=== PATIENT | female | born 1990 | race Caucasian/White ===

== ENCOUNTER 2016-12-28 12:33 | Emergency (ER) | payer SELFPAY ==
[2016-12-28 12:47] VITALS: BMI 17.5
[2016-12-28] MEDS ORDERED: ONDANSETRON *ODT* 4 MG TABLET SL ONE (13:15)
[2016-12-28] MEDS ORDERED: SODIUM CHLORIDE 1,000 ML IV STA (13:15)
[2016-12-28] MEDS ORDERED: FAMOTIDINE 20 MG/50 ML IVPB 50 ML IVPB ONE ×2 (13:15→13:30)
--- NOTE | 2016-12-28 13:26 | PDOC ---
History of Present Illness - General Chief Complaint: Pain Stated Complaint: NAUSEA Time Seen by Provider: 12/28/16 13:09 History Source: Patient Exam Limitations: No Limitations - History of Present Illness Travel History: No Initial Comments: 12/28/16 13:21 26 yr female no past medical history presents with c/o feeling dizzy, light headed after she had not eaten today and was going to sit down to lunch, pt felt nausea had 2 bites of her food. Pt denies LOC, denies bad pain or diarrhea. Pt states this has happened in the past when she has gone long periods of time not eating. Pt states she has a lot of stress and doesn't eat regulary due to no appetite. Pt denies diarrhea. Past History - Past Medical History Allergies/Adverse Reactions: Allergies Allergy/AdvReac Type Severity Reaction Status Date / Time No Known Allergies Allergy Verified 12/28/16 12:35 Home Medications: Ambulatory Orders Pseudoephedrine HCl [Sudafed -] 30 mg PO TID #21 tablet 08/27/15 Asthma: No Cancer: No Cardiac Disorders: No Diabetes: No HTN: No Seizures: No Thyroid Disease: No Other medical history: DENIES. - Reproductive History (#): 1 Para: 0 Dysfunctional Uterine Bleeding: Yes (could not tolerate BCP's in past for this.) - Suicide/Smoking/Psychosocial Hx Smoking Status: No Smoking History: Never smoked Have you smoked in the past 12 months: No Number of Cigarettes Smoked Daily: 0 Hx Alcohol Use: No Drug/Substance Use Hx: No Substance Use Type: Alcohol Hx Substance Use Treatment: No Abd/GI Specific PMHX - Complaint Specific PMHX Colitis: No Diverticulitis: No Gall Bladder Disease: No GERD: No Hepatitis: No Irritable Bowel Synd (IBS): No Pancreatitis: No GI Ulcer Disease: No Review of Systems - Review of Systems Able to Perform ROS?: Yes Is the patient limited Italian proficient: No Constitutional: No: Symptoms Reported HEENTM: No: Symptoms Reported Respiratory: No: Symptoms reported Cardiac (ROS): No: Symptoms Reported ABD/GI: Yes: Nausea : No: Symptoms Reported Musculoskeletal: No: Symptoms Reported Integumentary: No: Symptoms Reported Neurological: No: Symptoms reported Endocrine: No: Symptoms Reported *Physical Exam - Vital Signs Last Vital Signs Temp Pulse Resp BP Pulse Ox 98.2 F 80 18 97/65 99 10/06/17 12:34 12/28/16 12:34 12/28/16 12:34 12/28/16 12:34 12/28/16 12:34 - Physical Exam Comments: 12/28/16 13:28 General Appearance: Yes: Appropriately Dressed, Thin HEENT: positive: EOMI, JUSTICE, Normal ENT Inspection, TMs Normal, Pharynx Normal Neck: positive: Supple. negative: Tender Respiratory/Chest: positive: Lungs Clear, Normal Breath Sounds Cardiovascular: positive: Regular Rhythm, Regular Rate Gastrointestinal/Abdominal: positive: Normal Bowel Sounds, Flat, Soft. negative : Tender Musculoskeletal: positive: Normal Inspection Extremity: positive: Normal Capillary Refill, Normal Inspection, Normal Range of Motion Integumentary: positive: Normal Color, Dry, Warm Neurologic: positive: Fully Oriented, Alert, Normal Mood/Affect, Normal Response , Motor Strength 07/27 ED Treatment Course - LABORATORY CBC & Chemistry Diagram: 12/28/16 13:28 12/28/16 13:28 Medical Decision Making - Medical Decision Making 12/28/16 13:39 cc: dizzy, light headed this AM pt had not eaten anything was going to eat lunch around 12pm when she felt faint dizzy and "a knot in my stomach" denies pain at present will check labs,, finger stick IVF, zofran , r/o pt has no history of surgeries denies any OTC supplements or drug use, no history 12/28/16 14:32 pt feels better after IVF pt eating crackers and apple juice. 12/28/16 14:49 pt ambulatory steady gait dc home with her mother. 12/28/16 18:18 *DC/Admit/Observation/Transfer Diagnosis at time of Disposition: Headache Qualifiers: Headache type: tension-type Headache chronicity pattern: acute headache Intractability: not intractable Qualified Code(s): G44.209 - Tension-type headache, unspecified, not intractable - Discharge Dispostion Disposition: HOME Condition at time of disposition: Improved - Referrals Referrals: Mariia Middleton MD [Primary Care Provider] - - Patient Instructions Additional Instructions: drink at least 2 liters of water a day eat small frequent meals every 3hrs eat some protein and carbohydrate to keep your blood sugar levels steady return to ER for any worsening symptoms avoid alcohol, caffeine as this can dehydrate you and make symptoms worse. follow with your primary care on Saturday or Saturday
[2016-12-28] MEDS ORDERED: ONDANSETRON 4 MG/2 ML VIAL ONE (13:30)
[2016-12-28] MEDS ORDERED: ONDANSETRON 4 MG/2 ML VIAL IVPUSH ONE (13:31)
[2016-12-28 13:55] LABS: MCH 29.3 pg (25.7-33.7); MCHC 33.3 g/dl (32.0-36.0); MEAN CELL VOLUME 88.1 fl (80-96); MEAN PLT VOLUME 9.2 fl (7.5-11.1); PLATELET COUNT 167 K/MM3 (134-434); RDW 12.2 % (11.6-15.6)
[2016-12-28 14:19] LABS: ALBUMIN 3.9 g/dl (3.4-5.0); ALK PHOS 67 U/L (45-117); ANION GAP 7 (8-16); BILIRUBIN,TOTAL 0.3 mg/dL (0.2-1.0); CALCIUM 8.6 mg/dL (8.5-10.1); CO2 30 mmol/L (21-32); CREATININE 0.6 mg/dL (0.55-1.02); GLUCOSE,RANDOM 77 mg/dL (74-106); SGOT/AST 10 U/L (15-37); SGPT/ALT 11 U/L (12-78)
[2016-12-28 14:33] LABS: URINE APPEARANCE SLCLOUDY; URINE BILIRUBIN NEGATIVE (NEGATIVE); URINE BLOOD NEGATIVE (NEGATIVE); URINE COLOR YELLOW; URINE GLUCOSE (UA) NEGATIVE (NEGATIVE); URINE KETONE NEGATIVE (NEGATIVE); URINE NITRITE NEGATIVE (NEGATIVE); URINE PROTEIN NEGATIVE (NEGATIVE); URINE UROBILINOGEN NEGATIVE mg/dL (0.2-1.0)
[2016-12-28 14:51] LABS: THYROID STIMULATING HORMONE 1.17 uIU/ml (0.358-3.74)
[2016-12-28 15:40] VITALS: BP 103/69; PULSE 68; TEMP 98.4
[2016-12-28 16:20] LABS: URINE LEUK ESTERASE Negative (NEGATIVE)
== END 2016-12-28 15:40 | disposition home or self-care (01) ==
LOC: JER 12:33 → SUPCPDRO 12:33 → JER 15:40
PROC: 3E033GC Introduction of Other Therapeutic Substance into Peripheral Vein, Percutaneous Approach (ICD-10-PCS; principal; 2016-12-28)
DX: G44.209 Tension-type headache, unspecified, not intractable (principal)
CPT/HCPCS: 36415; 80053; 81003; 84443; 84481; 84703; 85027; 99283-25

== ENCOUNTER 2021-02-01 11:03 | Emergency (ER) | payer OTHER ==
[2021-02-01 11:12] VITALS: BP 120/74; PULSE 68; TEMP 98.1; BMI 19.2
[2021-02-01] MEDS ORDERED: KETOROLAC TROMETHAMINE 30 MG/1 ML VIAL IM ONE (11:47)
[2021-02-01] MEDS ORDERED: KETOROLAC TROMETHAMINE 30 MG/1 ML VIAL ONE (11:48)
== END 2021-02-01 13:57 | disposition home or self-care (01) ==
LOC: JERFT 11:03
PROC: 3E023GC Introduction of Other Therapeutic Substance into Muscle, Percutaneous Approach (ICD-10-PCS; principal; 2021-02-01)
DX: D17.21 Benign lipomatous neoplasm of skin and subcutaneous tissue of right arm (principal)
CPT/HCPCS: 76882-TC-RT-FY; 99284-25